=== PATIENT | male | born 1995 | race Hispanic/Latino ===

== ENCOUNTER → 2025-04-22 13:32 | Outpatient (CLI) | payer SELFPAY ==
[2025-04-22 19:37] LABS: Influenza A - CEPHEID Flu A NEGATIVE (NEGATIVE); Influenza B - CEPHEID Flu B NEGATIVE (NEGATIVE); Respiratory Syncytial Virus Negative (Negative)
[2025-04-22 19:50] LABS: COVID-19 CEPHEID 4-PLEX PCR Negative (Negative)
== END ==
PROVIDERS: Visit Provider Family Medicine
DX: R68.89 Other general symptoms and signs (principal)
CPT/HCPCS: 0241U